=== PATIENT | female | born 1975 | race Asian ===

== ENCOUNTER 2022-05-02 11:34 | Emergency (ER) | payer BC ==
[~2022-05-02] VITALS: Ht 154.9 cm; Wt 45.4 kg
[2022-05-02 12:04] VITALS: BP 126/94
--- NOTE | 2022-05-02 12:15 | NUR ---
BIBS C/O "Dx COVID 2days ago. Fever/body ache". AMBULATORY, PLACED ON BED, AAOX4, BREATHING EVEN AND UNLABORED SATURATIMNG AT 97%RA. SEEN AND EXAMINED BY DR BOBBY.
--- NOTE | 2022-05-02 12:42 | NUR ---
Patient discharged to home in stable condition. Written and verbal after care instructions given. Patient verbalizes understanding of instruction.
== END 2022-05-02 12:42 | disposition home or self-care (01) ==
LOC: ER 11:40
DX: U07.1 COVID-19 (principal)